=== PATIENT | female | born 1975 | race Caucasian/White ===

== ENCOUNTER 2016-10-18 02:00 | Emergency (ER) | payer OTHER ==
[~2016-10-18] VITALS: Ht 167.6 cm; Wt 70.3 kg
[~2016-10-18 02:00] MED LIST: 'PARAFON FORTE500 M1 PO; AMOXICILLIN500 M2 PO; AMOXICILLIN500 MG PO; ANAPROX DS550 MG PO; AUGMENTIN 875 M1 TAB PO; BACTRIM DS 8001 TA1 PO; BIRTH CONTROL1 EAC1 PO; CIPRO250 MG PO; CLARITIN10 MG PO; CYCLOBENZAPRINE10 MG PO; DAYPRO600 M1 PO; DIFLUCAN150 MG PO; DOXYCYCLINE MO100 MG PO; FIORICET 325 MG1 TAB PO; FLEXERIL10 MG; FLEXERIL10 MG PO; FLEXERIL5 MG PO; HYDROCODONE BIT1 T11 PO; IBU-6600 MG PO; K-Dur 20MEQ20 MEQ PO; KEFLEX500 MG PO; MEDROL DOSEPAK4 MG PO; MOTRIN IB200 MG PO; MOTRIN600 MG PO; MOTRIN800 MG PO; NEURONTIN100 MG PO; NKHM; NKHM PO; OMEPRAZOLE20 MG PO; PERCOCET 325 MG1 TA2 PO; PONSTEL250 MG PO; PREDNICOT20 MG PO; PREDNISONE10 MG PO; PREDNISONE20 M1 PO; PREDNISONE50 MG PO; PYRIDIUM200 MG PO; ROBAXIN750 MG PO; ROBITUSSIN AC 110 ML PO; TRAMADOL HCL50 MG PO; TRAZODONE50 MG PO; VALIUM5 MG PO; VICODIN 5/500 505 MG PO; VICODIN 500 MG-1 TAB PO; ZITHROMAX Z PA250 MG PO; ZITHROMAX250 MG PO; ZOFRAN ODT4 MG SL; ZOFRAN4 MG PO; Zofran4 MG PO; [UNRECOGNIZED DRUG - OTHER] PO
[2016-10-18] MEDS ORDERED: PSEUDOPHEDRINE30 MG PO (02:53)
[2016-10-18] MEDS ORDERED: PREDNISONE20 M1 PO (02:53)
[2016-10-18] MEDS ORDERED: AUGMENTIN 500 M1 TAB PO (02:53)
[2016-10-18] MEDS ORDERED: MUCINEX DM 30/61 TAB PO (02:53)
== END 2016-10-18 03:10 | disposition home or self-care (01) ==
LOC: ED 02:00
DX: J01.90 Acute sinusitis, unspecified (principal); J20.9 Acute bronchitis, unspecified; G43.909 Migraine, unspecified, not intractable, without status migrainosus; Z88.6 Allergy status to analgesic agent

== ENCOUNTER 2016-12-19 12:16 | Emergency (ER) | payer OTHER ==
[~2016-12-19] VITALS: Ht 167.6 cm; Wt 74.4 kg
[~2016-12-19 12:16] MED LIST changes: +AUGMENTIN 500 M1 TAB PO; +MUCINEX DM 30/61 TAB PO; +PSEUDOPHEDRINE30 MG PO
[2016-12-19] MEDS ORDERED: DELTASONE20 M1 PO (13:00)
== END 2016-12-19 13:33 | disposition home or self-care (01) ==
LOC: ED 12:16
DX: L23.7 Allergic contact dermatitis due to plants, except food (principal); F17.200 Nicotine dependence, unspecified, uncomplicated; G43.909 Migraine, unspecified, not intractable, without status migrainosus; Z90.89 Acquired absence of other organs; Z90.710 Acquired absence of both cervix and uterus; Z98.890 Other specified postprocedural states; Z88.5 Allergy status to narcotic agent

== ENCOUNTER 2017-02-15 17:50 | Emergency (ER) | payer OTHER ==
[~2017-02-15] VITALS: Wt 70.3 kg
[~2017-02-15 17:50] MED LIST changes: +DELTASONE20 M1 PO
[2017-02-15 18:56] LABS: BASO % 0.4 % (0.0-1.0); EOS # 0.2 10*3/uL (0.0-0.4); EOS % 2.1 % (1.0-4.0); HEMATOCRIT 41.9 % (37.0-47.0); HEMOGLOBIN 13.9 g/dl (12.0-16.0); LYMPH # 3.4 10*3/uL (1.3-4.4); MEAN CELL VOLUME 90.7 fl (81.0-99.0); MEAN CORPUSCULAR HGB 30.1 pg (27.0-31.0); MEAN CORPUSCULAR HGB CONC 33.2 g/dl (33.0-37.0); MONO # 0.9 10*3/uL (0.1-1.0); MONO % 8.5 % (3.0-9.0); NEUT # 6.4 10*3/uL (2.3-7.9); NEUT % 57.7 % (47.0-73.0); PLATELET COUNT AUTOMATED 270 10*3/uL (130-400); RED BLOOD COUNT 4.62 10*6/uL (4.10-5.10); WHITE BLOOD COUNT 11.1 10*3/uL (4.8-10.8)
[2017-02-15 19:13] LABS: ALKALINE PHOSPHATASE 121 U/L (45-117); BILIRUBIN, TOTAL 0.2 mg/dl (0.2-1.0); BUN 6 mg/dl (7-24); C-REACTIVE PROTEIN 0.35 MG/DL (0-0.3); CARBON DIOXIDE 30 mmol/L (21-32); CHLORIDE 105 mmol/L (98-107); EST GLOM FILT AFRICAN AMERICAN > 60 ml/min; GLUCOSE 95 mg/dL (65-99); MAGNESIUM 2.3 mg/dL (1.5-2.1); POTASSIUM 3.8 mmol/L (3.5-5.1); SGOT/AST 38 IU/L (3-35); SGPT/ALT 57 U/L (12-78); SODIUM 140 mmol/L (136-145); TOTAL PROTEIN 7.5 gm/dL (6.4-8.2)
[2017-02-15] MEDS ORDERED: PREDNISONE20 M1 PO (19:29)
== END 2017-02-15 19:49 | disposition home or self-care (01) ==
LOC: ED 17:50
PROVIDERS: Emergency Medicine
DX: M54.10 Radiculopathy, site unspecified (principal); F17.200 Nicotine dependence, unspecified, uncomplicated; Z88.6 Allergy status to analgesic agent

== ENCOUNTER → 2017-09-04 | Outpatient (CLI) | payer OTHER | END | disposition home or self-care (01) | LOC: US 07:23 | DX: R10.13 Epigastric pain (principal) ==

== ENCOUNTER → 2017-09-05 | Outpatient (CLI) | payer OTHER | END | disposition home or self-care (01) | LOC: NM 07:00 | DX: R10.13 Epigastric pain (principal) ==

== ENCOUNTER → 2017-09-23 | Day surgery (SDC) | payer OTHER ==
[~2017-09-23] VITALS: Ht 167.6 cm; Wt 84.8 kg
[~2017-09-23] MED LIST changes: +OMEPRAZOLE20 M2 PO
[2017-09-23 07:00] VITALS: BP 132/46
[2017-09-23 08:40] VITALS: BP 91/44
[2017-09-23 08:55] VITALS: BP 89/40
[2017-09-23 09:10] VITALS: BP 90/44
[2017-09-23 09:25] VITALS: BP 104/62
[2017-09-23 09:32] VITALS: BP 110/60
== END | disposition home or self-care (01) ==
LOC: SDC 09-19 09:30
DX: K29.50 Unspecified chronic gastritis without bleeding (principal); K21.9 Gastro-esophageal reflux disease without esophagitis; J45.909 Unspecified asthma, uncomplicated; F32.9 Major depressive disorder, single episode, unspecified; Z90.710 Acquired absence of both cervix and uterus; Z98.890 Other specified postprocedural states; Z82.49 Family history of ischemic heart disease and other diseases of the circulatory system; Z80.9 Family history of malignant neoplasm, unspecified

== ENCOUNTER → 2017-10-02 | Outpatient (CLI) | payer OTHER ==
[~2017-10-02] MED LIST changes: +Motrin,Rufen800 MG PO
[2017-10-02 17:25] LABS: ALKALINE PHOSPHATASE 153 U/L (45-117); BILIRUBIN, DIRECT < 0.1 mg/dL (0.0-0.2); BUN 12 mg/dl (7-24); CHLORIDE 101 mmol/L (98-107); CREATININE 0.69 mg/dL (0.55-1.02); POTASSIUM 3.8 mmol/L (3.5-5.1); SGOT/AST 24 IU/L (3-35); SGPT/ALT 58 U/L (12-78); SODIUM 138 mmol/L (136-145); TOTAL PROTEIN 7.8 gm/dL (6.4-8.2)
== END | disposition home or self-care (01) ==
LOC: LAB 15:27
PROVIDERS: Surgery
DX: R10.11 Right upper quadrant pain (principal)

== ENCOUNTER 2017-10-03 22:53 | Emergency (ER) | payer OTHER ==
[~2017-10-03] VITALS: Ht 167.6 cm; Wt 84.8 kg
[~2017-10-03 22:53] MED LIST changes: -Motrin,Rufen800 MG PO
[2017-10-04] MEDS ORDERED: Motrin,Rufen800 MG PO (00:20)
[2017-10-07] MEDS ORDERED: PANTOPRAZOLE SO40 MG PO (08:19)
[2017-10-08] MEDS ORDERED: PERCOCET 7.5-31 EACH PO (11:48)
== END 2017-10-04 00:42 | disposition home or self-care (01) ==
LOC: ED 22:53
DX: S00.83XA Contusion of other part of head, initial encounter (principal); F17.200 Nicotine dependence, unspecified, uncomplicated; G43.909 Migraine, unspecified, not intractable, without status migrainosus; K21.9 Gastro-esophageal reflux disease without esophagitis; Z88.5 Allergy status to narcotic agent; Y04.8XXA Assault by other bodily force, initial encounter; Y93.89 Activity, other specified; Y92.238 Other place in hospital as the place of occurrence of the external cause; Y99.8 Other external cause status

== ENCOUNTER → 2017-10-08 | Day surgery (SDC) | payer OTHER ==
[~2017-10-08] VITALS: Ht 167.6 cm; Wt 84.8 kg
[2017-10-08] VITALS (7 sets, daily range): BP systolic 106–137; BP diastolic 44–82
[~2017-10-08] MED LIST changes: +Motrin,Rufen800 MG PO; +PANTOPRAZOLE SO40 MG PO; +PERCOCET 7.5-31 EACH PO
== END | disposition home or self-care (01) ==
LOC: SDC 10-07 08:00
DX: K81.1 Chronic cholecystitis (principal); K21.9 Gastro-esophageal reflux disease without esophagitis; F17.210 Nicotine dependence, cigarettes, uncomplicated; Z98.890 Other specified postprocedural states; Z90.710 Acquired absence of both cervix and uterus

== ENCOUNTER 2017-10-11 19:44 | Emergency (ER) | payer OTHER ==
[~2017-10-11] VITALS: Ht 167.6 cm; Wt 84.8 kg
[2017-10-11 20:25] LABS: BASO % 0.3 % (0.0-1.0); EOS # 0.6 10*3/uL (0.0-0.4); EOS % 4.5 % (1.0-4.0); HEMATOCRIT 40.4 % (37.0-47.0); HEMOGLOBIN 13.6 g/dl (12.0-16.0); LYMPH # 3.8 10*3/uL (1.3-4.4); LYMPH % 30.5 % (27.0-41.0); MEAN CELL VOLUME 88.6 fl (81.0-99.0); MEAN CORPUSCULAR HGB 29.8 pg (27.0-31.0); MEAN CORPUSCULAR HGB CONC 33.7 g/dl (33.0-37.0); MEAN PLATELET VOLUME 11.1 fl (9.6-12.3); MONO # 0.7 10*3/uL (0.1-1.0); MONO % 5.6 % (3.0-9.0); NEUT # 7.3 10*3/uL (2.3-7.9); NEUT % 58.8 % (47.0-73.0); PLATELET COUNT AUTOMATED 311 10*3/uL (130-400); RED BLOOD COUNT 4.56 10*6/uL (4.10-5.10); RED CELL DISTRI WIDTH 12.1 % (0-14.5); WHITE BLOOD COUNT 12.5 10*3/uL (4.8-10.8)
[2017-10-11 20:41] LABS: ALBUMIN 3.4 gm/dl (3.1-4.5); ALKALINE PHOSPHATASE 129 U/L (45-117); BUN 8 mg/dl (7-24); CHLORIDE 104 mmol/L (98-107); CREATININE 0.81 mg/dL (0.55-1.02); LIPASE 109 U/L (73-393); POTASSIUM 3.4 mmol/L (3.5-5.1); SGOT/AST 24 IU/L (3-35); SGPT/ALT 40 U/L (12-78); SODIUM 138 mmol/L (136-145)
[2017-10-11 20:41] LABS: BILIRUBIN NEGATIVE (NEGATIVE); BLOOD NEGATIVE (NEGATIVE); CLARITY SL CLOUDY (CLEAR); COLOR YELLOW (YELLOW); GLUCOSE NEGATIVE (NEGATIVE); KETONE NEGATIVE (NEGATIVE); LEUKO ESTERASE NEGATIVE (NEGATIVE); NITRITE NEGATIVE (NEGATIVE); SPECIFIC GRAVITY <= 1.005 (1.005-1.030); UROBILINOGEN 0.2 E.U./dl (0.2-1.0)
[2017-10-11 20:47] LABS: BACTERIA 2+; EPITHELIAL CELLS 20-25; RBC 0-2 rbc/hpf (0-2); WBC 0-2 wbc/hpf (0-5)
== END 2017-10-12 00:38 | disposition home or self-care (01) ==
LOC: ED 19:44
PROVIDERS: Physician Assistant
DX: G89.18 Other acute postprocedural pain (principal); R10.84 Generalized abdominal pain; R10.32 Left lower quadrant pain; R10.11 Right upper quadrant pain; K21.9 Gastro-esophageal reflux disease without esophagitis; G43.909 Migraine, unspecified, not intractable, without status migrainosus; Z90.710 Acquired absence of both cervix and uterus; Z90.49 Acquired absence of other specified parts of digestive tract; Z98.890 Other specified postprocedural states; Z79.899 Other long term (current) drug therapy; Z88.5 Allergy status to narcotic agent

== ENCOUNTER 2018-03-24 22:50 | Emergency (ER) | payer OTHER ==
[~2018-03-24] VITALS: Ht 167.6 cm; Wt 81.6 kg
[2018-03-24] MEDS ORDERED: SEPTDS PO (23:56)
== END 2018-03-24 23:58 | disposition home or self-care (01) ==
LOC: ED 22:50
DX: J01.90 Acute sinusitis, unspecified (principal); H65.93 Unspecified nonsuppurative otitis media, bilateral; K21.9 Gastro-esophageal reflux disease without esophagitis; G43.909 Migraine, unspecified, not intractable, without status migrainosus; F17.200 Nicotine dependence, unspecified, uncomplicated; Z88.6 Allergy status to analgesic agent

== ENCOUNTER 2018-07-23 18:17 | Emergency (ER) | payer OTHER ==
[~2018-07-23] VITALS: Ht 167.6 cm; Wt 81.2 kg
--- NOTE | ~2018-07-23 | EKG ---
[place], [place] ELECTROCARDIOGRAM REPORT NAME: MEGHAN DEL ROSARIO UNIT #: [id number] ROOM: DOCTOR: EPIPHANY DRAFT REPORT BIRTHDATE: [birth year] [facility] [place] Test Date: 2018-07-23 Test Time: 18:48:04 Pat Name: MEGHAN DEL ROSARIO Department: Room: Gender: F [employer] Plater: SRINATH : 1975 Requested By: KIM WHITMORE PA-C Order Number: [id number] Reading MD: Carolin Stark MD Measurements Intervals [place] Rate: 75 P: 81 MS: 166 QRS: 62 QRSD: 91 T: 57 QT: 409 QTc: 457 Interpretive Statements Sinus rhythm Electronically Signed On 07-24-2018 16:16:51 PST by Carolin Stark MD CM:EKGRPT:ELECTROCARDIOGRAM REPORT [id number] KIM WHITMORE PA-C EPIPHANY DRAFT REPORT KIM WHITMORE PA-C
[~2018-07-23 18:17] MED LIST changes: +SEPTDS PO
[2018-07-23 18:51] LABS: BASO # 0.1 10*3/uL (0.0-0.1); BASO % 0.5 % (0.0-1.0); EOS # 0.2 10*3/uL (0.0-0.4); EOS % 1.8 % (1.0-4.0); HEMATOCRIT 42.2 % (37.0-47.0); HEMOGLOBIN 14.2 g/dl (12.0-16.0); LYMPH # 4.2 10*3/uL (1.3-4.4); LYMPH % 40.8 % (27.0-41.0); MEAN CELL VOLUME 90.8 fl (81.0-99.0); MEAN CORPUSCULAR HGB 30.5 pg (27.0-31.0); MEAN CORPUSCULAR HGB CONC 33.6 g/dl (33.0-37.0); MEAN PLATELET VOLUME 11.3 fl (9.6-12.3); MONO # 0.6 10*3/uL (0.1-1.0); MONO % 5.4 % (3.0-9.0); NEUT # 5.2 10*3/uL (2.3-7.9); NEUT % 51.2 % (47.0-73.0); PLATELET COUNT AUTOMATED 275 10*3/uL (130-400); RED BLOOD COUNT 4.65 10*6/uL (4.10-5.10); RED CELL DISTRI WIDTH 12.5 % (0-14.5); WHITE BLOOD COUNT 10.2 10*3/uL (4.8-10.8)
[2018-07-23 19:04] LABS: ACT PARTIAL THROMBO TIME 24.8 SECONDS (20.8-31.5)
[2018-07-23 19:08] LABS: ALBUMIN 4.1 gm/dl (3.1-4.5); ALKALINE PHOSPHATASE 134 U/L (45-117); BUN 12 mg/dl (7-24); CHLORIDE 107 mmol/L (98-107); CREATININE 0.83 mg/dL (0.55-1.02); POTASSIUM 3.5 mmol/L (3.5-5.1); SGOT/AST 22 IU/L (3-35); SGPT/ALT 32 U/L (12-78); SODIUM 139 mmol/L (136-145); TOTAL PROTEIN 7.7 gm/dL (6.4-8.2); TROPONIN I < 0.015 ng/ml (<0.045)
[2018-07-23 19:58] LABS: BILIRUBIN NEGATIVE (NEGATIVE); BLOOD NEGATIVE (NEGATIVE); CLARITY CLEAR (CLEAR); COLOR YELLOW (YELLOW); GLUCOSE NEGATIVE (NEGATIVE); KETONE NEGATIVE (NEGATIVE); LEUKO ESTERASE TRACE (NEGATIVE); NITRITE NEGATIVE (NEGATIVE); PH 7.5 (5.0-9.0); UROBILINOGEN 0.2 E.U./dl (0.2-1.0)
[2018-07-23 20:15] LABS: BACTERIA TRACE; EPITHELIAL CELLS 25-30; RBC 0-2 rbc/hpf (0-2)
== END 2018-07-23 21:50 | disposition home or self-care (01) ==
LOC: ED 18:17
PROVIDERS: Physician Assistant
DX: M62.830 Muscle spasm of back (principal); M54.6 Pain in thoracic spine; R07.9 Chest pain, unspecified; F17.200 Nicotine dependence, unspecified, uncomplicated; Z88.5 Allergy status to narcotic agent; Z79.899 Other long term (current) drug therapy; Z90.710 Acquired absence of both cervix and uterus

== ENCOUNTER 2019-01-24 16:40 | Emergency (ER) | payer OTHER ==
[~2019-01-24] VITALS: Ht 167.6 cm; Wt 83.9 kg
[2019-01-24] MEDS ORDERED: MEDROL DOSEPAK4 MG PO (16:50)
== END 2019-01-24 17:00 | disposition home or self-care (01) ==
LOC: ED 16:40
DX: L30.9 Dermatitis, unspecified (principal); Z88.5 Allergy status to narcotic agent

== ENCOUNTER 2019-02-04 06:18 | Emergency (ER) | payer OTHER ==
[~2019-02-04] VITALS: Ht 167.6 cm; Wt 83.9 kg
[2019-02-04 07:02] LABS: BASO % 0.3 % (0.0-1.0); EOS # 0.2 10*3/uL (0.0-0.4); EOS % 1.8 % (1.0-4.0); HEMATOCRIT 39.5 % (37.0-47.0); HEMOGLOBIN 12.7 g/dl (12.0-16.0); LYMPH # 3.1 10*3/uL (1.3-4.4); LYMPH % 28.5 % (27.0-41.0); MEAN CELL VOLUME 92.9 fl (81.0-99.0); MEAN CORPUSCULAR HGB 29.9 pg (27.0-31.0); MEAN CORPUSCULAR HGB CONC 32.2 g/dl (33.0-37.0); MEAN PLATELET VOLUME 11.2 fl (9.6-12.3); MONO # 0.8 10*3/uL (0.1-1.0); MONO % 7.3 % (3.0-9.0); NEUT # 6.8 10*3/uL (2.3-7.9); NEUT % 61.7 % (47.0-73.0); PLATELET COUNT AUTOMATED 271 10*3/uL (130-400); RED BLOOD COUNT 4.25 10*6/uL (4.10-5.10); RED CELL DISTRI WIDTH 12.7 % (0-14.5)
[2019-02-04 07:21] LABS: ALBUMIN 3.6 gm/dl (3.1-4.5); ALKALINE PHOSPHATASE 128 U/L (45-117); BUN 10 mg/dl (7-24); CHLORIDE 105 mmol/L (98-107); CREATININE 1.03 mg/dL (0.55-1.02); LIPASE 195 U/L (73-393); POTASSIUM 3.1 mmol/L (3.5-5.1); SGOT/AST 12 IU/L (3-35); SGPT/ALT 25 U/L (12-78); SODIUM 136 mmol/L (136-145)
[2019-02-04 08:05] LABS: BILIRUBIN NEGATIVE (NEGATIVE); BLOOD NEGATIVE (NEGATIVE); CLARITY SL CLOUDY (CLEAR); COLOR YELLOW (YELLOW); GLUCOSE NEGATIVE (NEGATIVE); KETONE NEGATIVE (NEGATIVE); LEUKO ESTERASE 1+ (NEGATIVE); NITRITE POSITIVE (NEGATIVE); PH 5.5 (5.0-9.0); SPECIFIC GRAVITY <= 1.005 (1.005-1.030)
[2019-02-04 08:14] LABS: BACTERIA 1+
[2019-02-04] MEDS ORDERED: CIPRO500 MG PO ×2 (08:20→08:29)
[2019-02-04] MEDS ORDERED: Motrin,Rufen800 MG PO ×2 (08:20→08:29)
[2019-02-04] MEDS ORDERED: VALTREX1000 MG PO ×2 (08:20→08:29)
== END 2019-02-04 08:35 | disposition home or self-care (01) ==
LOC: ED 06:18
PROVIDERS: Student in an Organized Health Care Education/Training Program
DX: B02.9 Zoster without complications (principal); N39.0 Urinary tract infection, site not specified; Z88.5 Allergy status to narcotic agent; Z79.899 Other long term (current) drug therapy

== ENCOUNTER 2019-03-23 18:11 | Emergency (ER) | payer OTHER ==
[~2019-03-23] VITALS: Ht 167.6 cm; Wt 81.6 kg
[~2019-03-23 18:11] MED LIST changes: +CIPRO500 MG PO; +VALTREX1000 MG PO
== END 2019-03-23 21:18 | disposition home or self-care (01) ==
LOC: ED 18:11
DX: S93.402A Sprain of unspecified ligament of left ankle, initial encounter (principal); S96.912A Strain of unspecified muscle and tendon at ankle and foot level, left foot, initial encounter; S90.32XA Contusion of left foot, initial encounter; K21.9 Gastro-esophageal reflux disease without esophagitis; G43.909 Migraine, unspecified, not intractable, without status migrainosus; Z88.6 Allergy status to analgesic agent; W50.0XXA Accidental hit or strike by another person, initial encounter; Y93.89 Activity, other specified; Y92.89 Other specified places as the place of occurrence of the external cause; Y99.8 Other external cause status

== ENCOUNTER 2019-06-08 00:57 | Emergency (ER) | payer OTHER ==
[~2019-06-08] VITALS: Wt 78.0 kg
[2019-06-08] MEDS ORDERED: CYCLOBENZAPRINE10 MG PO (01:09)
[2019-06-08] MEDS ORDERED: TRAZODONE50 MG PO (01:09)
[2019-06-08 01:25] LABS: BASO % 0.3 % (0.0-1.0); EOS # 0.1 10*3/uL (0.0-0.4); EOS % 0.6 % (1.0-4.0); HEMOGLOBIN 14.7 g/dl (12.0-16.0); LYMPH # 3.7 10*3/uL (1.3-4.4); LYMPH % 29.8 % (27.0-41.0); MEAN CELL VOLUME 92.2 fl (81.0-99.0); MEAN CORPUSCULAR HGB 30.1 pg (27.0-31.0); MEAN CORPUSCULAR HGB CONC 32.7 g/dl (33.0-37.0); MEAN PLATELET VOLUME 11.6 fl (9.6-12.3); MONO # 0.6 10*3/uL (0.1-1.0); PLATELET COUNT AUTOMATED 319 10*3/uL (130-400); RED BLOOD COUNT 4.88 10*6/uL (4.10-5.10); RED CELL DISTRI WIDTH 12.3 % (0-14.5); WHITE BLOOD COUNT 12.4 10*3/uL (4.8-10.8)
[2019-06-08 01:38] LABS: ACT PARTIAL THROMBO TIME 26.5 SECONDS (20.0-32.1)
[2019-06-08 01:43] LABS: ALBUMIN 4.2 gm/dl (3.1-4.5); ALKALINE PHOSPHATASE 138 U/L (45-117); BUN 10 mg/dl (7-24); CHLORIDE 108 mmol/L (98-107); CREATININE 0.93 mg/dL (0.55-1.02); POTASSIUM 3.2 mmol/L (3.5-5.1); SGOT/AST 17 IU/L (3-35); SGPT/ALT 30 U/L (12-78); SODIUM 141 mmol/L (136-145)
[2019-06-08 01:46] LABS: TROPONIN I < 0.015 ng/ml (<0.045)
== END 2019-06-08 04:45 | disposition left against medical advice (07) ==
LOC: ED 00:57
PROVIDERS: Emergency Medicine
DX: R07.9 Chest pain, unspecified (principal); K21.9 Gastro-esophageal reflux disease without esophagitis; G43.909 Migraine, unspecified, not intractable, without status migrainosus; F17.200 Nicotine dependence, unspecified, uncomplicated; Z88.5 Allergy status to narcotic agent; Z79.899 Other long term (current) drug therapy

== ENCOUNTER 2019-06-15 16:36 | Emergency (ER) | payer OTHER ==
[~2019-06-15] VITALS: Ht 167.6 cm; Wt 73.9 kg
[2019-06-15] MEDS ORDERED: NEURONTIN400 MG PO (16:40)
== END 2019-06-15 18:35 | disposition home or self-care (01) ==
LOC: ED 16:36
DX: S50.02XA Contusion of left elbow, initial encounter (principal); K21.9 Gastro-esophageal reflux disease without esophagitis; Z88.5 Allergy status to narcotic agent; Z79.899 Other long term (current) drug therapy; W10.9XXA Fall (on) (from) unspecified stairs and steps, initial encounter; Y93.89 Activity, other specified; Y92.098 Other place in other non-institutional residence as the place of occurrence of the external cause; Y99.8 Other external cause status

== ENCOUNTER 2019-12-30 21:02 | Emergency (ER) | payer OTHER ==
[~2019-12-30] VITALS: Ht 167.6 cm; Wt 79.8 kg
[~2019-12-30 21:02] MED LIST changes: +NEURONTIN400 MG PO
== END 2019-12-30 23:32 | disposition home or self-care (01) ==
LOC: ED 21:02
DX: S63.501A Unspecified sprain of right wrist, initial encounter (principal); M77.9 Enthesopathy, unspecified; Z88.6 Allergy status to analgesic agent; Z79.899 Other long term (current) drug therapy; X50.9XXA Other and unspecified overexertion or strenuous movements or postures, initial encounter; Y93.89 Activity, other specified; Y92.89 Other specified places as the place of occurrence of the external cause; Y99.0 Civilian activity done for income or pay

== ENCOUNTER 2020-02-29 11:11 | Emergency (ER) | payer OTHER ==
[~2020-02-29] VITALS: Ht 167.6 cm; Wt 80.7 kg
[2020-02-29 12:31] LABS: BASO # 0.1 10*3/uL (0.0-0.1); BASO % 0.3 % (0.0-1.0); EOS # 0.1 10*3/uL (0.0-0.4); EOS % 0.6 % (1.0-4.0); LYMPH # 2.4 10*3/uL (1.3-4.4); LYMPH % 13.7 % (27.0-41.0); MEAN CELL VOLUME 89.9 fl (81.0-99.0); MEAN CORPUSCULAR HGB 29.4 pg (27.0-31.0); MEAN CORPUSCULAR HGB CONC 32.7 g/dl (33.0-37.0); MEAN PLATELET VOLUME 11.1 fl (9.6-12.3); MONO % 5.6 % (3.0-9.0); NEUT # 14.2 10*3/uL (2.3-7.9); NEUT % 79.5 % (47.0-73.0); PLATELET COUNT AUTOMATED 281 10*3/uL (130-400); RED BLOOD COUNT 4.56 10*6/uL (4.10-5.10); RED CELL DISTRI WIDTH 12.5 % (0-14.5); WHITE BLOOD COUNT 17.8 10*3/uL (4.8-10.8)
[2020-02-29 12:45] LABS: ALBUMIN 3.6 gm/dl (3.1-4.5); ALKALINE PHOSPHATASE 117 U/L (45-117); BUN 11 mg/dl (7-24); CHLORIDE 107 mmol/L (98-107); CREATININE 0.85 mg/dL (0.55-1.02); POTASSIUM 4.1 mmol/L (3.5-5.1); SGOT/AST 37 IU/L (3-35); SGPT/ALT 39 U/L (12-78); SODIUM 140 mmol/L (136-145); TOTAL PROTEIN 7.2 gm/dL (6.4-8.2)
[2020-02-29] MEDS ORDERED: ROBITUSSIN DM 101 OZ PO (13:55)
[2020-02-29] MEDS ORDERED: PREDNISONE20 M1 PO (13:55)
[2020-02-29] MEDS ORDERED: AVPAK AZITHROM250 MG PO (13:55)
[2020-02-29] MEDS ORDERED: PROVENTIL HFA6.7 GM INH (13:55)
== END 2020-02-29 14:02 | disposition home or self-care (01) ==
LOC: ED 11:11
PROVIDERS: Nurse Practitioner Family
DX: J20.9 Acute bronchitis, unspecified (principal); F17.200 Nicotine dependence, unspecified, uncomplicated; Z20.828 Contact with and (suspected) exposure to other viral communicable diseases; Z88.6 Allergy status to analgesic agent; Z79.899 Other long term (current) drug therapy

== ENCOUNTER 2020-03-09 12:17 | Emergency (ER) | payer OTHER ==
[~2020-03-09] VITALS: Ht 167.6 cm; Wt 80.7 kg
[~2020-03-09 12:17] MED LIST changes: +AVPAK AZITHROM250 MG PO; +PROVENTIL HFA6.7 GM INH; +ROBITUSSIN DM 101 OZ PO
== END 2020-03-09 13:57 | disposition home or self-care (01) ==
LOC: ED 12:17
DX: S90.01XA Contusion of right ankle, initial encounter (principal); Z88.6 Allergy status to analgesic agent; Z79.899 Other long term (current) drug therapy; W22.8XXA Striking against or struck by other objects, initial encounter; Y93.89 Activity, other specified; Y92.89 Other specified places as the place of occurrence of the external cause; Y99.8 Other external cause status

== ENCOUNTER 2020-03-18 23:20 | Emergency (ER) | payer OTHER ==
[~2020-03-18] VITALS: Ht 167.6 cm; Wt 80.7 kg
[2020-03-19] MEDS ORDERED: IBUPROFEN600 MG PO (00:18)
[2020-03-19] MEDS ORDERED: NORCO 5-325 TA1 EACH PO (00:56)
== END 2020-03-19 01:53 | disposition home or self-care (01) ==
LOC: ED 23:20
DX: S83.92XA Sprain of unspecified site of left knee, initial encounter (principal); Z88.8 Allergy status to other drugs, medicaments and biological substances; Z79.899 Other long term (current) drug therapy; X58.XXXA Exposure to other specified factors, initial encounter; Y93.89 Activity, other specified; Y92.89 Other specified places as the place of occurrence of the external cause; Y99.8 Other external cause status

== ENCOUNTER 2020-06-16 11:02 | Emergency (ER) | payer OTHER ==
[~2020-06-16] VITALS: Ht 167.6 cm; Wt 83.9 kg
[~2020-06-16 11:02] MED LIST changes: +IBUPROFEN600 MG PO; +NORCO 5-325 TA1 EACH PO
[2020-06-16] MEDS ORDERED: TESSALON PERLE100 MG PO (12:27)
== END 2020-06-16 13:06 | disposition home or self-care (01) ==
LOC: ED 11:02
DX: U07.1 COVID-19 (principal); J40 Bronchitis, not specified as acute or chronic; Z88.5 Allergy status to narcotic agent; Z79.899 Other long term (current) drug therapy

== ENCOUNTER 2020-10-09 18:56 | Emergency (ER) | payer OTHER ==
[~2020-10-09] VITALS: Wt 86.6 kg
[~2020-10-09 18:56] MED LIST changes: +TESSALON PERLE100 MG PO
[2020-10-09] MEDS ORDERED: NAPROSYN500 MG PO (21:07)
== END 2020-10-09 21:20 | disposition home or self-care (01) ==
LOC: ED 18:56
DX: M25.521 Pain in right elbow (principal); Z88.5 Allergy status to narcotic agent; Z90.711 Acquired absence of uterus with remaining cervical stump; Z90.49 Acquired absence of other specified parts of digestive tract; Z98.890 Other specified postprocedural states; X58.XXXA Exposure to other specified factors, initial encounter; Y93.89 Activity, other specified; Y92.89 Other specified places as the place of occurrence of the external cause; Y99.8 Other external cause status

== ENCOUNTER 2020-12-05 03:43 | Emergency (ER) | payer OTHER ==
[~2020-12-05] VITALS: Ht 167.6 cm; Wt 86.2 kg
[~2020-12-05 03:43] MED LIST changes: +NAPROSYN500 MG PO
[2020-12-05] MEDS ORDERED: METHOCARBAMOL750 M1 PO (04:02)
[2020-12-05] MEDS ORDERED: NAPROSYN500 MG PO (04:02)
== END 2020-12-05 04:18 | disposition home or self-care (01) ==
LOC: ED 03:43
DX: S39.012A Strain of muscle, fascia and tendon of lower back, initial encounter (principal); M54.41 Lumbago with sciatica, right side; Z88.5 Allergy status to narcotic agent; Z79.899 Other long term (current) drug therapy; Z90.711 Acquired absence of uterus with remaining cervical stump; X58.XXXA Exposure to other specified factors, initial encounter; Y93.89 Activity, other specified; Y92.89 Other specified places as the place of occurrence of the external cause; Y99.8 Other external cause status

== ENCOUNTER 2020-12-26 08:18 | Emergency (ER) | payer OTHER ==
[~2020-12-26] VITALS: Ht 167.6 cm; Wt 86.2 kg
[~2020-12-26 08:18] MED LIST changes: +METHOCARBAMOL750 M1 PO
[2020-12-26] MEDS ORDERED: CYCLOBENZAPRINE10 MG PO (09:36)
[2020-12-26] MEDS ORDERED: PREDNISONE50 MG PO (09:36)
== END 2020-12-26 10:28 | disposition home or self-care (01) ==
LOC: ED 08:18
DX: M54.31 Sciatica, right side (principal); Z88.5 Allergy status to narcotic agent; Z79.899 Other long term (current) drug therapy; Z98.890 Other specified postprocedural states

== ENCOUNTER 2022-04-10 14:41 | Emergency (ER) | payer OTHER ==
[~2022-04-10] VITALS: Ht 167.6 cm; Wt 83.0 kg
== END 2022-04-10 17:56 | disposition home or self-care (01) ==
LOC: ED 14:41
DX: U07.1 COVID-19 (principal); B34.9 Viral infection, unspecified; Z79.899 Other long term (current) drug therapy; Z88.5 Allergy status to narcotic agent

== ENCOUNTER 2022-09-30 14:20 | Emergency (ER) | payer OTHER ==
[~2022-09-30] VITALS: Ht 167.6 cm; Wt 85.3 kg
[2022-09-30] MEDS ORDERED: BENZONATATE100 M1 PO (18:29)
[2022-09-30] MEDS ORDERED: VIBRAMYCIN100 MG PO (18:29)
[2022-09-30] MEDS ORDERED: PREDNISONE20 M1 PO (18:29)
== END 2022-09-30 18:29 | disposition home or self-care (01) ==
LOC: ED 14:20
DX: J40 Bronchitis, not specified as acute or chronic (principal); K21.9 Gastro-esophageal reflux disease without esophagitis; Z88.5 Allergy status to narcotic agent; Z98.890 Other specified postprocedural states; Z90.710 Acquired absence of both cervix and uterus; Z90.49 Acquired absence of other specified parts of digestive tract

== ENCOUNTER 2025-04-10 17:28 | Emergency (ER) | payer SELFPAY ==
[~2025-04-10] VITALS: Ht 167.6 cm; Wt 90.7 kg
[~2025-04-10 17:28] MED LIST changes: +BENZONATATE100 M1 PO; +VIBRAMYCIN100 MG PO
[2025-04-10] MEDS ORDERED: IBUPROFEN 800 MG TAB PO ONE (18:10)
[2025-04-10] MEDS ORDERED: Motrin,Rufen800 MG PO (20:42)
== END 2025-04-10 20:49 | disposition home or self-care (01) ==
LOC: ED 17:28
DX: S93.401A Sprain of unspecified ligament of right ankle, initial encounter (principal); M77.31 Calcaneal spur, right foot; Z88.5 Allergy status to narcotic agent; Z79.899 Other long term (current) drug therapy; Z90.710 Acquired absence of both cervix and uterus; Z90.49 Acquired absence of other specified parts of digestive tract; W22.8XXA Striking against or struck by other objects, initial encounter; Y93.H2 Activity, gardening and landscaping; Y92.89 Other specified places as the place of occurrence of the external cause; Y99.8 Other external cause status